=== PATIENT | female | born 1995 | race Two or more races ===

== ENCOUNTER 2017-03-27 18:19 | Emergency (ER) | payer MEDICAID ==
[~2017-03-27] VITALS: Ht 167.6 cm; Wt 104.3 kg
[2017-03-27] MEDS ORDERED: IBUPROFEN600 MG ORAL (19:16)
[2017-03-27] MEDS ORDERED: ROBAXIN-750750 MG PO (19:16)
[2017-03-27] MEDS ORDERED: ZOFRAN4 M3 ORAL (19:16)
[2017-03-27 19:21] VITALS: BP 124/83
[2017-03-27 19:22] VITALS: BP 124/83
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
== END 2017-03-27 19:22 | disposition home or self-care (01) ==
LOC: EMR 19:20
DX: S16.1XXA Strain of muscle, fascia and tendon at neck level, initial encounter (principal); V43.62XA Car passenger injured in collision with other type car in traffic accident, initial encounter; Y92.9 Unspecified place or not applicable; F41.9 Anxiety disorder, unspecified
CPT/HCPCS: 99284

== ENCOUNTER 2018-12-15 23:47 | Emergency (ER) | payer MEDICAID ==
[~2018-12-15] VITALS: Ht 167.6 cm; Wt 104.3 kg
[~2018-12-15 23:47] MED LIST: IBUPROFEN600 MG ORAL; ROBAXIN-750750 MG PO; ZOFRAN4 M3 ORAL
[2018-12-16] VITALS: BP 101/75
--- NOTE | 2018-12-16 | NUR ---
ED Nurse Note: PT AMBULATED TO ED C/O COUGH AND SORE THROAT WITH LEFT EAR PAIN SINCE MONDAY. AO4. NAD. VSS.
[2018-12-16] MEDS ORDERED: MEDROL DOSEPAK4 MG ORAL (00:06)
[2018-12-16] MEDS ORDERED: AUGMENTIN 875-1 EAC1 ORAL (00:06)
[2018-12-16] MEDS ORDERED: IBUPROFEN600 MG ORAL (00:06)
--- NOTE | 2018-12-16 00:10 | NUR ---
ER DISCHARGE NOTE: Patient is cleared to be discharged per ERMD, pt is aox4, on room air, with stable vital signs. pt was given dc and prescription instructions, pt was able to verbalize understanding, pt id band removed. pt is able to ambulate with steady gait. pt took all belongings.
[2018-12-16] MEDS ORDERED: Augmentin 875mg Tab ORAL ONE (00:15)
--- NOTE | 2018-12-16 00:27 | Emergency Room Report ---
History of Present Illness General Chief Complaint: Earache Source: Patient Present Illness HPI Patient presents with complaints of sore throat Left-sided ear pain ongoing since Monday Denies any chest pain or shortness of breath denies any vomiting pain is worse with swallowing Denies any posterior neck pain denies any photophobia patient reports that she was supposed to be getting set up for removing her tonsils Secondary to multiple infections however has not been able to do so Denies any rash Allergies: Coded Allergies: No Known Allergies (Unverified , 03/27/17) Patient History Past Medical History: see triage record Pertinent Family History: none Last Menstrual Period: 12/12/18 Now: No Reviewed Nursing Documentation: PMH: Agreed; PSxH: Agreed Nursing Documentation-PMH Past Medical History: No History, Except For Hx Gastrointestinal Problems: Yes - Gastritis History Of Psychiatric Problem: Yes - ANXIETY Review of Systems All Other Systems: negative except mentioned in HPI Physical Exam Vital Signs Date Time Temp Pulse Resp B/P (MAP) Pulse Ox O2 Delivery O2 Flow Rate FiO2 12/15/18 23:50 98.4 73 16 101/75 (84) 97 Room Air Sp02 EP Interpretation: reviewed, normal General Appearance: well appearing, no apparent distress Head: normocephalic, atraumatic Eyes: bilateral eye PERRL, bilateral eye EOMI ENT: hearing grossly normal, normal voice, TMs + canals normal, uvula midline, pharyngeal erythema Neck: full range of motion, supple, no meningismus, no bony tend Respiratory: lungs clear, normal breath sounds, no rhonchi, no respiratory distress, no retraction, no accessory muscle use Cardiovascular #1: normal peripheral pulses, regular rate, rhythm, no edema, no gallop, no JVD, no murmur Gastrointestinal: normal bowel sounds, non tender, soft, no mass, no organomegaly, non-distended, no guarding, no hernia, no pulsatile mass, no rebound Genitourinary: no CVA tenderness Musculoskeletal: normal inspection Neurologic: oriented x3, responsive, solar lab technician III-XII nml as tested, motor strength/ tone normal, sensory intact Psychiatric: mood/affect normal Skin: normal color, no rash, warm/dry, palpation normal Lymphatic: normal inspection, no adenopathy Medical Decision Making Diagnostic Impression: Primary Impression: pharyngitis ER Course Multiple differentials and consideration including but not limited to retropharyngeal abscess peritonsillar abscess,, pharyngitis patient's clinical exam and history is consistent with Pharyngitis patient placed on antibiotics does not appear septic or toxic and will have initial conservative Outpatient trial Last Vital Signs Date Time Temp Pulse Resp B/P (MAP) Pulse Ox O2 Delivery O2 Flow Rate FiO2 12/16/18 00:10 98.4 78 16 101/75 97 Room Air Status: improved Disposition: HOME, SELF-CARE Condition: Improved Scripts Methylprednisolone (Methylprednisolone*) 4MG Dspk 4 MG ORAL DIRECTED for 6 Days, #21 EA 0 Refills Day 1: Two tablets before breakfast, one after lunch, one after dinner, and two at bedtime. If started late in the day, take all six tablets at once or divide into two or three doses, unless otherwise directed by prescriber. Day 2: One tablet before breakfast, one after lunch, one after dinner, and two at bedtime Day 3: One tablet before breakfast, one after lunch, one after dinner, and one at bedtime Day 4: One tablet before breakfast, one after lunch, and one at bedtime Day 5: One tablet before breakfast and one at bedtime Day 6: One tablet before breakfast Prov: Roosevelt Barrientos DO 12/16/18 Ibuprofen* (MOTRIN*) 600 Mg Tablet 600 MG ORAL Q8H PRN for For Pain, #20 TAB 0 Refills Prov: Roosevelt Barrientos DO 12/16/18 Amoxicillin/Potassium Clav 875-125* (AUGMENTIN 875-125 TABLET*) 1 Each Tablet 1 TAB ORAL TWICE A DAY, #14 TAB Prov: Roosevelt Barrientos DO 12/16/18 Referrals: [facility]ERR[facility] ([facility]P) [facility] Patient Instructions: Pharyngitis, [id number] Additional Instructions: Patient is provided with the discharge instructions notified to follow up with primary doctor in the next 2-3 days otherwise return to the er with any worsening symptoms. Please note that this report is being documented using ADAPT[employer] technology. This can lead to erroneous entry secondary to incorrect interpretation by the dictating instrument. Roosevelt Barrientos DO Dec 16, 2018 00:27
== END 2018-12-16 00:10 | disposition home or self-care (01) ==
LOC: EMR 23:59
DX: J02.9 Acute pharyngitis, unspecified (principal); F41.9 Anxiety disorder, unspecified
CPT/HCPCS: 99282

== ENCOUNTER 2019-02-09 16:41 | Emergency (ER) | payer MEDICAID ==
[~2019-02-09] VITALS: Ht 167.6 cm; Wt 104.3 kg
[~2019-02-09 16:41] MED LIST changes: +AUGMENTIN 875-1 EAC1 ORAL; +MEDROL DOSEPAK4 MG ORAL
[2019-02-09 16:53] VITALS: BP 100/64
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
[2019-02-09] MEDS ORDERED: Ketorolac 30mg Inj IM ONE (17:15)
--- NOTE | 2019-02-09 17:25 | NUR ---
ED Nurse Note: pt went to xray with tech
--- NOTE | 2019-02-09 17:40 | NUR ---
ED Nurse Note: pt went back from xray with tech
--- NOTE | 2019-02-09 17:45 | NUR ---
ED Nurse Note: pt was medicated as ordered. pt able to tolerate pain medication. will continue to monitor.
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
[2019-02-09] MEDS ORDERED: IBU800 MG PO (17:47)
[2019-02-09] MEDS ORDERED: ROBAXIN500 MG PO (17:47)
[2019-02-09 17:52] VITALS: BP 100/64
--- NOTE | 2019-02-09 17:52 | NUR ---
ER DISCHARGE NOTE: Patient is cleared to be discharged per ERMD, pt is aox4, on room air, with stable vital signs. pt was given dc and prescription instructions, pt was able to verbalize understanding, pt id band removed without complications. pt is able to ambulate with steady gait. pt took all belongings.
--- NOTE | 2019-02-11 10:34 | Diagnostic Imaging Report ---
Indication: Pain, trauma Technique: 3 views of the lumbar spine Comparison: None Findings: There is degenerative disc narrowing at L5-S1. The remaining disc spaces are preserved. Vertebral body heights are preserved. No acute fractures. No dislocations. Bony alignment is normal Impression: Mild degenerative changes. No acute bony trauma
== END 2019-02-09 17:52 | disposition home or self-care (01) ==
LOC: EMR 17:28
DX: S39.012A Strain of muscle, fascia and tendon of lower back, initial encounter (principal); X58.XXXA Exposure to other specified factors, initial encounter; Y93.55 Activity, bike riding; Y92.410 Unspecified street and highway as the place of occurrence of the external cause
CPT/HCPCS: 72020; 96372; 99283; J1885

== ENCOUNTER 2019-04-11 15:30 | Emergency (ER) | payer SELFPAY ==
[~2019-04-11] VITALS: Ht 170.2 cm; Wt 104.3 kg
[~2019-04-11 15:30] MED LIST changes: +IBU800 MG PO; +ROBAXIN500 MG PO
[2019-04-11] MEDS ORDERED: NKM (15:46)
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
[2019-04-11] MEDS ORDERED: OFLOXACIN10 ML OP (16:03)
--- NOTE | 2019-04-11 16:05 | NUR ---
ER DISCHARGE NOTE:visual acuity test was done Patient is cleared to be discharged per ERMD, pt is aox4, on room air, with stable vital signs. pt was given dc and prescription instructions, pt was able to verbalize understanding. pt is able to ambulate with steady gait. pt took all belongings.
[2019-04-11 16:22] VITALS: BP 103/67
[2019-04-11 16:24] VITALS: BP 103/67
== END 2019-04-11 16:25 | disposition home or self-care (01) ==
LOC: EMR 15:51
DX: H10.89 Other conjunctivitis (principal)
CPT/HCPCS: 99282

== ENCOUNTER 2019-08-07 08:57 | Emergency (ER) | payer SELFPAY ==
[~2019-08-07] VITALS: Ht 167.6 cm; Wt 104.3 kg
[~2019-08-07 08:57] MED LIST changes: +NKM; +OFLOXACIN10 ML OP
--- NOTE | 2019-08-07 09:06 | NUR ---
ED Nurse Note: Pt walked in from home c/o nausea/vomiting, cough, congestion, body aches, chills x 2 days. Pt had a fever at home, but is afebrile now. Respirations even and unlabored on room air. Vitals stable as documented. ED MD @ bedside
[2019-08-07 09:09] VITALS: BP 121/84
--- NOTE | 2019-08-07 09:13 | Emergency Room Report ---
History of Present Illness General Chief Complaint: Flu Like Symptoms Source: Patient Present Illness HPI 23-year-old female, presents with cough, congestion, fever/chills/body aches x1 day no aggravating leaving factors severity is mild, constant, patient is tolerating good p.o., patient states that she felt a little nauseous after taking Advil patient presents for evaluation and a work note Allergies: Coded Allergies: No Known Allergies (Unverified , 03/27/17) Patient History Past Medical History: see triage record Reviewed Nursing Documentation: PMH: Agreed; PSxH: Agreed Nursing Documentation-PMH Past Medical History: No Stated History Hx Gastrointestinal Problems: Yes - Gastritis Review of Systems All Other Systems: negative except mentioned in HPI Physical Exam Vital Signs Date Time Temp Pulse Resp B/P (MAP) Pulse Ox O2 Delivery O2 Flow Rate FiO2 08/07/19 09:00 98.1 105 17 121/84 (96) 98 Room Air Sp02 EP Interpretation: reviewed, normal General Appearance: well appearing, no apparent distress, alert Head: normocephalic, atraumatic Eyes: bilateral eye PERRL, bilateral eye EOMI ENT: uvula midline, moist mucus membranes, nasal congestion Neck: supple, thyroid normal, supple/symm/no masses Respiratory: lungs clear, no respiratory distress, no retraction, no accessory muscle use Cardiovascular #1: normal peripheral pulses, regular rate, rhythm, no edema, no gallop, no murmur Gastrointestinal: non tender, soft, no guarding, no rebound Musculoskeletal: normal inspection Neurologic: alert, oriented x3 Psychiatric: mood/affect normal Skin: no rash, warm/dry Medical Decision Making Diagnostic Impression: Primary Impression: Viral syndrome ER Course 23-year-old female presents with cough, congestion differential diagnosis includes URI, viral syndrome, influenza We will provide patient with a Tylenol here Patient deferred urine test Work note provided disposition home with return precautions follow-up with PCP Last Vital Signs Date Time Temp Pulse Resp B/P (MAP) Pulse Ox O2 Delivery O2 Flow Rate FiO2 08/07/19 09:09 98 18 Room Air 08/07/19 09:09 98.1 121/84 98 Disposition: HOME, SELF-CARE Condition: Stable Referrals: NON PHYSICIAN (PCP) [facility] Departure Forms: Return to Work Return to Work Date: Aug 09, 2019 Patient Instructions: Upper Respiratory Infection, Adult, [id number] Additional Instructions: The patient was provided with discharge instructions, notified to follow-up with a primary care doctor and or specialist in the next 24-48 hours, and to return to the ED if they have worsening of their symptoms. Please note that this report is being documented using DRAGON technology. This can lead to erroneous entry secondary to incorrect interpretation by the dictating instrument. Malcolm Briggs MD Aug 07, 2019 09:13
[2019-08-07] MEDS ORDERED: Acetaminophen 500mg (ES) tab ORAL ONE (09:15)
[2019-08-07 09:19] VITALS: BP 126/85
--- NOTE | 2019-08-07 09:19 | NUR ---
ER DISCHARGE NOTE: Patient is cleared to be discharged per ERMD, pt is aox4, on room air, with stable vital signs as documented. pt was given dc instructions, pt was able to verbalize understanding, pt id band removed. pt is able to ambulate with steady gait. pt took all belongings.
== END 2019-08-07 09:21 | disposition home or self-care (01) ==
LOC: EMR 09:05
DX: B34.9 Viral infection, unspecified (principal)
CPT/HCPCS: 99281

== ENCOUNTER 2020-04-15 06:41 | Emergency (ER) | payer SELFPAY ==
[~2020-04-15] VITALS: Ht 167.6 cm; Wt 104.3 kg
--- NOTE | 2020-04-15 07:01 | Emergency Room Report ---
History of Present Illness General Chief Complaint: Abdominal Pain Source: Patient Present Illness HPI Disclaimer: Please note that this report is being documented using [employer] technology. This can lead to erroneous entry secondary to incorrect interpretation by the dictating instrument. HPI: 24-year-old female presents for evaluation of epigastric pain. Symptoms present 2 days. She states she ate some chili fries and Fritos 2 days ago after which she developed epi gastric cramping. Nausea and vomiting the first day but this is now resolved. She is also having some loose stools. Denies fever, chills, chest pain, palpitations, URI symptoms, other sick contacts. She is taking [id number] Tums with some relief. Pain exacerbated by eating. Relieved by cold liquids. No history of intra-abdominal surgeries. LMP 1 month ago. Denies dysuria or hematuria. PMH: Denied PSH: Denied Allergies: Denied Social Hx: Denied Allergies: Coded Allergies: No Known Allergies (Unverified , 03/27/17) COVID-19 Screening Contact w/high risk pt: No Experienced COVID-19 symptoms?: No COVID-19 Testing performed INSIGHT DIRECTOR: Yes COVID-19 Screening: Negative COVID-19 COVID-19 Testing Source: nasal Patient History Now: No Nursing Documentation-PMH Past Medical History: No Stated History Hx Gastrointestinal Problems: Yes - Gastritis Review of Systems All Other Systems: negative except mentioned in HPI Physical Exam Vital Signs Date Time Temp Pulse Resp B/P (MAP) Pulse Ox O2 Delivery O2 Flow Rate FiO2 04/15/20 06:45 99.0 75 18 117/75 (89) 99 Room Air General: Awake and alert, no acute distress HEENT: NC/AT. EOMI. Cardiovascular: RRR. S1 and S2 normal. No murmur appreciated Resp: Normal work of breathing. No cough, wheezing or crackles appreciated Abdomen: Obese abdomen abdomen is soft, nondistended. Mild tender palpation in the epigastric region. No guarding. No tenderness otherwise in the right upper quadrant, left upper quadrant, lower quadrants of periumbilical suprapubic regions. Skin: Intact. No abrasions, laceration or rash over the exposed skin MSK: Normal tone and bulk. Moving all extremities. No obvious deformity. Neuro: Awake and alert. Mentating appropriately. Medical Decision Making Diagnostic Impression: Primary Impression: GERD (gastroesophageal reflux disease) Additional Impression: Gastroenteritis ER Course Is a 24-year-old female presenting for evaluation of epigastric pain 2 days duration along with diarrhea. Differential includes was not limited to GERD, esophagitis, gastritis, gastroenteritis, pancreatitis, cholecystitis, nephrolithiasis, viral syndrome, food poisoning to name a few. Labs are returned within normal limits. Belly is overall benign. Do not believe she requires emergent imaging at this time. Feels better after receiving GI cocktail and IV famotidine. Patient be discharged with antacids. Follow-up with PMD. Discussed reasons to return to ED. She understands and agrees with this treatment plan. Laboratory Tests Test 04/15/20 07:15 White Blood Count 9.8 K/UL (4.8-10.8) Red Blood Count 4.90 M/UL (4.20-5.40) Hemoglobin 13.8 G/DL (12.0-16.0) Hematocrit 41.5 % (37.0-47.0) Mean Corpuscular Volume 85 FL (80-99) Mean Corpuscular Hemoglobin 28.1 PG (27.0-31.0) Mean Corpuscular Hemoglobin Concent 33.2 G/DL (32.0-36.0) Red Cell Distribution Width 12.5 % (11.6-14.8) Platelet Count 230 K/UL (150-450) Mean Platelet Volume 9.1 FL (6.5-10.1) Neutrophils (%) (Auto) 60.7 % (45.0-75.0) Lymphocytes (%) (Auto) 29.1 % (20.0-45.0) Monocytes (%) (Auto) 6.8 % (1.0-10.0) Eosinophils (%) (Auto) 1.9 % (0.0-3.0) Basophils (%) (Auto) 1.5 % (0.0-2.0) Urine Color Pale yellow Urine Appearance Clear Urine pH 5 (4.5-8.0) Urine Specific [place] 1.020 (1.005-1.035) Urine Protein Negative (NEGATIVE) Urine Glucose (UA) Negative (NEGATIVE) Urine Ketones Negative (NEGATIVE) Urine Blood 1+ (NEGATIVE) H Urine Nitrite Negative (NEGATIVE) Urine Bilirubin Negative (NEGATIVE) Urine Urobilinogen Normal MG/DL (0.0-1.0) Urine Leukocyte Esterase 1+ (NEGATIVE) H Urine RBC 0-2 /HPF (0 - 2) Urine WBC 0-2 /HPF (0 - 2) Urine Squamous Epithelial Cells Occasional /LPF Urine Bacteria Occasional /HPF (NONE) Urine HCG, Qualitative Negative (NEGATIVE) Sodium Level 137 MMOL/L (136-145) Potassium Level 3.9 MMOL/L (3.5-5.1) Chloride Level 102 MMOL/L (98-107) Carbon Dioxide Level 25 MMOL/L (21-32) Anion Gap 11 mmol/L (5-15) Blood Urea Nitrogen 10 mg/dL (7-18) Creatinine 0.8 MG/DL (0.55-1.30) Estimated Glomerular Filtration Rate > 60 mL/min (>60) Glucose Level 104 MG/DL (74-106) Calcium Level 8.6 MG/DL (8.5-10.1) Total Bilirubin 0.3 MG/DL (0.2-1.0) Aspartate Amino Transferase (AST) 27 U/L (15-37) Alanine Aminotransferase (ALT) 46 U/L (12-78) Alkaline Phosphatase 73 U/L (46-116) Total Protein 7.1 G/DL (6.4-8.2) Albumin 3.6 G/DL (3.4-5.0) Globulin 3.5 g/dL Albumin/Globulin Ratio 1.0 (1.0-2.7) Lipase 69 U/L (73-393) L Urine Opiates Screen Negative (NEGATIVE) Urine Barbiturates Screen Negative (NEGATIVE) Phencyclidine (PCP) Screen Negative (NEGATIVE) Urine Amphetamines Screen Negative (NEGATIVE) Urine Benzodiazepines Screen Negative (NEGATIVE) Urine Cocaine Screen Negative (NEGATIVE) Urine Marijuana (THC) Screen Negative (NEGATIVE) Last Vital Signs Date Time Temp Pulse Resp B/P (MAP) Pulse Ox O2 Delivery O2 Flow Rate FiO2 04/15/20 06:45 99.0 75 18 117/75 (89) 99 Room Air Disposition: HOME, SELF-CARE Condition: Stable Scripts Mag Hydrox/Al Hydrox/Simeth (MAALOX MAXIMUM STRENGTH SUSP) 355 Ml Oral.susp 20 ML PO TID for 5 Days, #355 ML Prov: Miguel Beltrán MD 04/15/20 Famotidine* (Pepcid 20mg tablet*) 20 Mg Tablet 20 MG ORAL DAILY for Gerd, #30 TAB 0 Refills Prov: Miguel Beltrán MD 04/15/20 Miguel Betlrán MD Apr 15, 2020 07:01
--- NOTE | 2020-04-15 07:08 | NUR ---
ED Nurse Note: Pt arrived to ed c/o epigastric abdomen pain since monday. pt reports vomiting on monday. pt states this has happened to her before, when she eats spicy foods. no acute distress noted.
[2020-04-15 07:09] VITALS: BP 117/75
[2020-04-15] MEDS ORDERED: Dicyclomine HCl 10mg/5ml oral soln ORAL ONE (07:15)
[2020-04-15] MEDS ORDERED: Mylanta II UD 30ml ORAL ONE (07:15)
[2020-04-15] MEDS ORDERED: Lidocaine 2% Visc 15ml soln ORAL ONE (07:15)
[2020-04-15 07:24] LABS: BASOPHILS % (AUTO) 1.5 % (0.0-2.0); EOSINOPHILS % (AUTO) 1.9 % (0.0-3.0); HEMATOCRIT 41.5 % (37.0-47.0); HEMOGLOBIN 13.8 G/DL (12.0-16.0); LYMPHOCYTES % (AUTO) 29.1 % (20.0-45.0); MEAN CORPUSCULAR VOLUME 85 FL (80-99); MONOCYTES % (AUTO) 6.8 % (1.0-10.0); NEUTROPHILS % (AUTO) 60.7 % (45.0-75.0); PLATELET COUNT 230 K/UL (150-450); RED CELL DISTRIBUTION WIDTH 12.5 % (11.6-14.8); WHITE BLOOD COUNT 9.8 K/UL (4.8-10.8)
[2020-04-15] MEDS ORDERED: MAALOX MAXIMUM355 M1 PO (07:25)
[2020-04-15] MEDS ORDERED: FAMOTIDINE20 MG ORAL (07:25)
[2020-04-15 07:31] LABS: APPEARANCE,URINE CLEAR; BILIRUBIN, URINE NEGATIVE (NEGATIVE); COLOR,URINE PALE YELLOW; GLUCOSE, URINE (UA) NEGATIVE (NEGATIVE); KETONES,URINE NEGATIVE (NEGATIVE); LEUKOCYTE ESTERASE ,URINE 1+ (NEGATIVE); NITRITE,URINE NEGATIVE (NEGATIVE); PH,URINE 5 (4.5-8.0); PROTEIN,URINE NEGATIVE (NEGATIVE); UROBILINOGEN,URINE NORMAL MG/DL (0.0-1.0)
[2020-04-15 07:39] LABS: ANION GAP 11 mmol/L (5-15); BLOOD UREA NITROGEN 10 mg/dL (7-18); CALCIUM 8.6 MG/DL (8.5-10.1); CARBON DIOXIDE 25 MMOL/L (21-32); CHLORIDE 102 MMOL/L (98-107); CREATININE 0.8 MG/DL (0.55-1.30); POTASSIUM 3.9 MMOL/L (3.5-5.1); SODIUM 137 MMOL/L (136-145)
[2020-04-15 07:41] LABS: ALANINE AMINOTRANSFERASE 46 U/L (12-78); ALBUMIN 3.6 G/DL (3.4-5.0); ALKALINE PHOSPHATASE 73 U/L (46-116); ASPARTATE AMINO TRANSFERASE 27 U/L (15-37); BILIRUBIN,TOTAL 0.3 MG/DL (0.2-1.0)
[2020-04-15 07:52] VITALS: BP 120/73
--- NOTE | 2020-04-15 07:52 | NUR ---
ER DISCHARGE NOTE: Patient is cleared to be discharged per ERMD, pt is aox4, on room air, with stable vital signs. pt was given dc and prescription instructions, pt was able to verbalize understanding, pt id band and iv site removed without complications. pt is able to ambulate with steady gait. pt took all belongings.
== END 2020-04-15 07:53 | disposition home or self-care (01) ==
LOC: EMR 07:15
DX: K52.9 Noninfective gastroenteritis and colitis, unspecified (principal); K21.9 Gastro-esophageal reflux disease without esophagitis; E66.9 Obesity, unspecified; Z68.37 Body mass index [BMI] 37.0-37.9, adult
CPT/HCPCS: 36415; 80053; 80307; 81003; 81025; 83690; 85025; 96374; 99283; S0028